=== PATIENT | female | born 1950 | race Hispanic/Latino ===

== ENCOUNTER → 2022-01-06 | Outpatient (CLI) | payer MEDICARE | LOC: US 07:22 | PROVIDERS: ATTEND Urology | DX: N39.0 Urinary tract infection, site not specified (principal) | CPT/HCPCS: 74018; 76770 ==

== ENCOUNTER 2022-12-01 15:21 | Inpatient (IN) | payer MEDICARE ==
[~2022-12-01] VITALS: Ht 149.9 cm; Wt 101.2 kg
[2022-12-01] MEDS ORDERED: POTASSIUM CHLO20 ME1 PO (17:13)
[2022-12-01] MEDS ORDERED: BENZONATATE200 MG PO (17:13)
[2022-12-01] MEDS ORDERED: CARVEDILOL12.5 MG PO (17:13)
[2022-12-01] MEDS ORDERED: TRESIBA FL100 UNIT/1 SQ (17:13)
[2022-12-01] MEDS ORDERED: NEXIUM40 MG PO (17:13)
[2022-12-01] MEDS ORDERED: AMLODIPINE BESY10 MG PO (17:13)
[2022-12-01] MEDS ORDERED: FUROSEMIDE40 MG PO (17:13)
[2022-12-01] MEDS ORDERED: ELIQUIS5 MG PO (17:13)
[2022-12-01] MEDS ORDERED: ATORVASTATIN CA20 MG PO (17:13)
[2022-12-01] MEDS ORDERED: LOSARTAN POTAS100 MG PO (17:13)
[2022-12-01] MEDS ORDERED: BENICAR20 MG PO (17:13)
[2022-12-01] MEDS ORDERED: INSULIN LI100 UNIT/1 SQ (17:17)
[2022-12-01 17:28] VITALS: BP 165/77
[2022-12-01 17:33] VITALS: BP 165/77
[2022-12-01] MEDS ORDERED: DEXTROSE 50% SYRINGE 50 ML IV PRN (18:00)
[2022-12-01] MEDS ORDERED: BENZONATATE 100 MG CAP PO PRN (18:00)
[2022-12-01] MEDS ORDERED: ACETAMINOPHEN 325 MG TAB PO PRN (18:00)
[2022-12-01] MEDS: ALBUTEROL/IPRATROPIUM 3 ML NEB NEB SCH ×2 (19:00→23:00)
[2022-12-01 20:00] VITALS: BP 153/59
[2022-12-01] MEDS: INSULIN DEGLUDEC 30 UNIT SQ SCH (21:00)
[2022-12-01 21:15] VITALS: BP 153/59
[2022-12-01] MEDS: ATORVASTATIN 40 MG TAB PO SCH (21:19)
[2022-12-01] MEDS: INSULIN LISPRO 100 UNIT/1 ML 3ML VIAL SQ SCH (21:21)
[2022-12-02] VITALS (8 sets, daily range): BP systolic 139–182; BP diastolic 54–76
[2022-12-02] MEDS: ALBUTEROL/IPRATROPIUM 3 ML NEB NEB SCH ×6 (03:00→23:00)
[2022-12-02 06:06] LABS: BASOPHILS % 0.4 % (0.0-1.0); HEMATOCRIT 37.6 % (34.2-44.1); LYMPHOCYTES # (AUTO) 0.7 (1.0-3.2); LYMPHOCYTES % 24.6 % (18.0-39.1); MEAN CORPUSCULAR HEMOGLOBIN 29.5 pg (28-32); MEAN CORPUSCULAR HGB CONC 31.9 g/dL (31-35); MEAN CORPUSCULAR VOLUME 92.4 fL (81-99); MONOCYTES # (AUTO) 0.2 (0.2-0.8); NEUTROPHILS # (AUTO) 1.8 (2.1-6.9); NEUTROPHILS % 66.6 % (38.7-80.0); PLATELET COUNT 111 x10e3/uL (140-360); RED BLOOD COUNT 4.07 x10e6/uL (3.6-5.1); RED CELL DISTRIBUTION WIDTH 13.2 % (11.7-14.4)
[2022-12-02 06:34] LABS: ANION GAP 12.5 mmol/L (8-16); CALCIUM 8.6 mg/dL (8.4-10.2); CREATININE, SERUM 0.85 mg/dL (0.57-1.11); POTASSIUM 4.5 mmol/L (3.5-5.1)
[2022-12-02] MEDS: INSULIN LISPRO 100 UNIT/1 ML 3ML VIAL SQ SCH ×7 (08:55→21:03)
[2022-12-02] MEDS: FUROSEMIDE 40 MG TAB PO SCH ×2 (08:59→12:02)
[2022-12-02] MEDS: AMLODIPINE BESYLATE 10 MG TAB PO SCH (08:59)
[2022-12-02] MEDS: POTASSIUM CHLORIDE 20 MEQ TAB CR PO SCH ×2 (08:59→16:28)
[2022-12-02] MEDS: PANTOPRAZOLE SOD 40 MG TABEC PO SCH (09:00)
[2022-12-02] MEDS: CARVEDILOL 12.5 MG TAB PO SCH ×2 (09:00→16:28)
[2022-12-02] MEDS ORDERED: OLMESARTAN 20 MG TAB PO SCH (09:00)
[2022-12-02] MEDS: LOSARTAN POTASSIUM 100 MG TAB PO SCH (09:01)
[2022-12-02] MEDS: APIXABAN 5 MG TABLET PO SCH ×2 (09:01→16:28)
[2022-12-02 11:54] LABS: % IRON SATURATION 6 % (15-50); IRON 20 ug/dL (50-170); TOTAL IRON BINDING CAPACITY 330 ug/dL (261-478); TRANSFERRIN 236 mg/dL (180-382)
[2022-12-02] MEDS: NIRMATRELVIR/RITONAVIR 1 EACH BOX PO SCH (17:58)
[2022-12-02] MEDS: INSULIN DEGLUDEC 30 UNIT SQ SCH (20:57)
[2022-12-02] MEDS: ATORVASTATIN 40 MG TAB PO SCH (20:57)
[2022-12-03] MEDS: ALBUTEROL/IPRATROPIUM 3 ML NEB NEB SCH ×6 (03:00→23:00)
[2022-12-03] MEDS: NIRMATRELVIR/RITONAVIR 1 EACH BOX PO SCH ×2 (05:21→17:13)
[2022-12-03 08:00] VITALS: BP 162/66
[2022-12-03] MEDS: FUROSEMIDE 40 MG TAB PO SCH ×2 (08:35→11:45)
[2022-12-03] MEDS: APIXABAN 5 MG TABLET PO SCH ×2 (08:35→16:50)
[2022-12-03] MEDS: AMLODIPINE BESYLATE 10 MG TAB PO SCH (08:36)
[2022-12-03] MEDS: CARVEDILOL 12.5 MG TAB PO SCH ×2 (08:37→16:50)
[2022-12-03] MEDS: LOSARTAN POTASSIUM 100 MG TAB PO SCH (08:37)
[2022-12-03] MEDS: INSULIN LISPRO 100 UNIT/1 ML 3ML VIAL SQ SCH ×7 (08:39→21:10)
[2022-12-03] MEDS: PANTOPRAZOLE SOD 40 MG TABEC PO SCH (08:41)
[2022-12-03] MEDS: POTASSIUM CHLORIDE 20 MEQ TAB CR PO SCH ×2 (08:41→16:50)
[2022-12-03 11:12] VITALS: BP 169/64
[2022-12-03 15:35] VITALS: BP 132/82
[2022-12-03] MEDS ORDERED: ONDANSETRON HCL INJ 2MG/ML 2ML 2 MG/ML VIAL IV PRN (18:15)
[2022-12-03 20:00] VITALS: BP 132/66
[2022-12-03] MEDS: INSULIN DEGLUDEC 30 UNIT SQ SCH (21:00)
[2022-12-03] MEDS: ATORVASTATIN 40 MG TAB PO SCH (21:07)
[2022-12-04] MEDS: ALBUTEROL/IPRATROPIUM 3 ML NEB NEB SCH ×6 (03:00→23:00)
[2022-12-04 03:55] VITALS: BP 132/71
[2022-12-04] MEDS: NIRMATRELVIR/RITONAVIR 1 EACH BOX PO SCH ×2 (06:00→17:06)
[2022-12-04 08:33] VITALS: BP 132/71
[2022-12-04 09:22] VITALS: BP 160/61
[2022-12-04] MEDS: INSULIN LISPRO 100 UNIT/1 ML 3ML VIAL SQ SCH ×7 (10:57→21:00)
[2022-12-04] MEDS: FUROSEMIDE 40 MG TAB PO SCH ×2 (10:58→12:52)
[2022-12-04] MEDS: POTASSIUM CHLORIDE 20 MEQ TAB CR PO SCH ×2 (10:58→17:04)
[2022-12-04] MEDS: APIXABAN 5 MG TABLET PO SCH ×2 (10:58→17:05)
[2022-12-04] MEDS: AMLODIPINE BESYLATE 10 MG TAB PO SCH (10:59)
[2022-12-04] MEDS: LOSARTAN POTASSIUM 100 MG TAB PO SCH (10:59)
[2022-12-04] MEDS: PANTOPRAZOLE SOD 40 MG TABEC PO SCH (10:59)
[2022-12-04] MEDS: CARVEDILOL 12.5 MG TAB PO SCH ×2 (11:00→17:06)
[2022-12-04 12:45] VITALS: BP 165/67
[2022-12-04 17:29] VITALS: BP 123/51
[2022-12-04 20:00] VITALS: BP 134/58
[2022-12-04] MEDS ORDERED: AZITHROMYCIN 250 MG TAB PO SCH (20:00)
[2022-12-04] MEDS: INSULIN DEGLUDEC 30 UNIT SQ SCH (21:00)
[2022-12-04] MEDS: ATORVASTATIN 40 MG TAB PO SCH (21:03)
[2022-12-05 01:52] VITALS: BP 109/94
[2022-12-05] MEDS: ALBUTEROL/IPRATROPIUM 3 ML NEB NEB SCH (03:00)
[2022-12-05 05:07] VITALS: BP 146/60
[2022-12-05 06:05] LABS: BASOPHILS % 0.8 % (0.0-1.0); EOSINOPHILS # (AUTO) 0.4 (0.0-0.4); EOSINOPHILS % 7.9 % (0.0-6.0); HEMATOCRIT 35.9 % (34.2-44.1); HEMOGLOBIN 11.9 g/dL (12.0-16.0); LYMPHOCYTES # (AUTO) 1.7 (1.0-3.2); LYMPHOCYTES % 32.6 % (18.0-39.1); MEAN CORPUSCULAR HEMOGLOBIN 30.5 pg (28-32); MEAN CORPUSCULAR HGB CONC 33.1 g/dL (31-35); MEAN CORPUSCULAR VOLUME 92.1 fL (81-99); MONOCYTES # (AUTO) 0.6 (0.2-0.8); MONOCYTES % 11.9 % (4.4-11.3); NEUTROPHILS # (AUTO) 2.4 (2.1-6.9); NEUTROPHILS % 46.6 % (38.7-80.0); PLATELET COUNT 139 x10e3/uL (140-360); RED CELL DISTRIBUTION WIDTH 13.2 % (11.7-14.4)
[2022-12-05] MEDS: NIRMATRELVIR/RITONAVIR 1 EACH BOX PO SCH (06:19)
[2022-12-05 06:28] LABS: ANION GAP 14.7 mmol/L (8-16); CALCIUM 8.8 mg/dL (8.4-10.2); CREATININE, SERUM 0.92 mg/dL (0.57-1.11); POTASSIUM 4.7 mmol/L (3.5-5.1)
[2022-12-05] MEDS ORDERED: ONDANSETRON HCL 4 MG ORAL DISINTEGRATING TAB SL PRN (07:30)
[2022-12-05] MEDS: LOSARTAN POTASSIUM 100 MG TAB PO SCH (09:09)
[2022-12-05] MEDS: APIXABAN 5 MG TABLET PO SCH (09:09)
[2022-12-05] MEDS: AMLODIPINE BESYLATE 10 MG TAB PO SCH (09:09)
[2022-12-05] MEDS: CARVEDILOL 12.5 MG TAB PO SCH (09:10)
[2022-12-05] MEDS: PANTOPRAZOLE SOD 40 MG TABEC PO SCH (09:10)
[2022-12-05] MEDS: POTASSIUM CHLORIDE 20 MEQ TAB CR PO SCH (09:10)
[2022-12-05] MEDS: FUROSEMIDE 40 MG TAB PO SCH (09:10)
[2022-12-05] MEDS: INSULIN LISPRO 100 UNIT/1 ML 3ML VIAL SQ SCH ×2 (09:12→09:13)
[2022-12-05 10:12] VITALS: BP 149/66
== END 2022-12-05 10:48 | disposition home or self-care (01) | DRG 177 ==
LOC: EDSTATUS 15:36
PROVIDERS: ADMIT Internal Medicine; ATTEND Internal Medicine
DX: U07.1 COVID-19 (principal); J12.82 Pneumonia due to coronavirus disease 2019; Z68.42 Body mass index [BMI] 45.0-49.9, adult; E66.01 Morbid (severe) obesity due to excess calories; K21.9 Gastro-esophageal reflux disease without esophagitis; M19.90 Unspecified osteoarthritis, unspecified site; I10 Essential (primary) hypertension; I25.10 Atherosclerotic heart disease of native coronary artery without angina pectoris; G47.30 Sleep apnea, unspecified; D64.9 Anemia, unspecified; E78.5 Hyperlipidemia, unspecified; R06.03 Acute respiratory distress; E11.40 Type 2 diabetes mellitus with diabetic neuropathy, unspecified; Z95.1 Presence of aortocoronary bypass graft; Z28.310 Unvaccinated for COVID-19; Z79.4 Long term (current) use of insulin; Z86.16 Personal history of COVID-19
CPT/HCPCS: 36415; 71046; 80048; 82948; 83540; 84466; 85025; J0456; J0696; J7050

== ENCOUNTER 2022-12-24 15:52 | Observation (INO) | payer MEDICARE ==
[~2022-12-24] VITALS: Ht 152.4 cm; Wt 103.9 kg
[~2022-12-24 15:52] MED LIST: AMLODIPINE BESY10 MG PO; ATORVASTATIN CA20 MG PO; BENICAR20 MG PO; BENZONATATE200 MG PO; CARVEDILOL12.5 MG PO; ELIQUIS5 MG PO; FUROSEMIDE40 MG PO; INSULIN LI100 UNIT/1 SQ; LOSARTAN POTAS100 MG PO; NEXIUM40 MG PO; POTASSIUM CHLO20 ME1 PO; TRESIBA FL100 UNIT/1 SQ
[2022-12-24 16:15] LABS: BASOPHILS # (AUTO) 0.1 (0.0-0.1); BASOPHILS % 0.8 % (0.0-1.0); EOSINOPHILS # (AUTO) 0.6 (0.0-0.4); EOSINOPHILS % 7.4 % (0.0-6.0); HEMATOCRIT 35.9 % (34.2-44.1); HEMOGLOBIN 11.4 g/dL (12.0-16.0); LYMPHOCYTES # (AUTO) 2.1 (1.0-3.2); LYMPHOCYTES % 25.7 % (18.0-39.1); MEAN CORPUSCULAR HEMOGLOBIN 29.9 pg (28-32); MEAN CORPUSCULAR HGB CONC 31.8 g/dL (31-35); MEAN CORPUSCULAR VOLUME 94.2 fL (81-99); MONOCYTES # (AUTO) 0.9 (0.2-0.8); MONOCYTES % 11.3 % (4.4-11.3); NEUTROPHILS # (AUTO) 4.6 (2.1-6.9); NEUTROPHILS % 54.7 % (38.7-80.0); PLATELET COUNT 144 x10e3/uL (140-360); RED BLOOD COUNT 3.81 x10e6/uL (3.6-5.1); RED CELL DISTRIBUTION WIDTH 14.2 % (11.7-14.4)
[2022-12-24 16:28] LABS: INR 1.11; PROTHROMBIN TIME 14.5 seconds (11.9-14.5)
[2022-12-24 16:29] LABS: PARTIAL THROMBOPLASTIN TIME 38.3 seconds (23.8-35.5)
[2022-12-24] MEDS ORDERED: INSULIN LI100 UNIT/1 SQ (16:31)
[2022-12-24 16:39] LABS: ALANINE AMINOTRANSFERASE 17 IU/L (0-55); ALBUMIN 3.1 g/dL (3.5-5.0); ALBUMIN/GLOBULIN RATIO 0.6 (0.8-2.0); ALKALINE PHOSPHATASE 168 IU/L (40-150); ANION GAP 13.2 mmol/L (8-16); BLOOD UREA NITROGEN 24 mg/dL (7-26); BUN/CREATININE RATIO 27 (6-25); CALCIUM 9.1 mg/dL (8.4-10.2); CARBON DIOXIDE 26 mmol/L (22-29); CHLORIDE 107 mmol/L (98-107); CREATINE KINASE 53 IU/L (29-168); GLUCOSE 114 mg/dL (74-118); MAGNESIUM 2.1 MG/DL (1.3-2.1); POTASSIUM 4.2 mmol/L (3.5-5.1); SODIUM 142 mmol/L (136-145)
[2022-12-24 16:59] LABS: CLARITY,URINE CLEAR (CLEAR); COLOR,URINE YELLOW (YELLOW)
[2022-12-24 17:00] LABS: KETONES,URINE NEGATIVE (NEGATIVE); LEUKOCYTE ESTERASE ,URINE SMALL (NEGATIVE); NITRITE,URINE NEGATIVE (NEGATIVE); PROTEIN,URINE DIPSTICK 2+ (NEGATIVE); URINE UROBILINOGEN 0.2 mg/dL (0.2 - 1)
[2022-12-24 17:04] LABS: BACTERIA,URINE RARE /HPF; EPITHELIAL CELLS,URINE MANY /LPF; RBC,URINE 0-5 /HPF (0-5)
[2022-12-24 17:05] LABS: YEAST,URINE MODERATE
[2022-12-24] MEDS ORDERED: SODIUM CHLORIDE 0.9% 100 ML ONE (17:52)
[2022-12-24] MEDS ORDERED: IOPAMIDOL 370 MG/ML 100 ML INFUS..BTL INJ ONE (17:53)
[2022-12-24] MEDS ORDERED: Morphine 2mg Syringe 2 MG/ML SYR IV PRN (18:45)
[2022-12-24] MEDS ORDERED: ONDANSETRON HCL INJ 2MG/ML 2ML 2 MG/ML VIAL IV PRN (18:45)
[2022-12-24] MEDS: ACETAMINOPHEN 325 MG TAB PO PRN (19:00)
[2022-12-24] MEDS: FAMOTIDINE 20 MG/2 ML VIAL IV SCH (19:00)
[2022-12-24] MEDS ORDERED: ACETAMINOPHEN 325 MG TAB ONE (19:18)
[2022-12-24] MEDS ORDERED: FAMOTIDINE 20 MG/2 ML VIAL IV ONE (19:18)
[2022-12-24 21:57] VITALS: BP 177/62
[2022-12-24 22:50] VITALS: BP 177/62
[2022-12-24] MEDS ORDERED: HUMALOG MI100 UNIT/2 SQ (23:14)
[2022-12-25 00:16] VITALS: BP 157/56
[2022-12-25 02:29] LABS: CREATINE KINASE MB 0.8 ng/mL (0-5.0)
[2022-12-25] MEDS: FAMOTIDINE 20 MG/2 ML VIAL IV SCH (03:44)
[2022-12-25 04:58] VITALS: BP 166/71
[2022-12-25 05:55] LABS: BASOPHILS % 0.3 % (0.0-1.0); EOSINOPHILS # (AUTO) 0.5 (0.0-0.4); EOSINOPHILS % 6.4 % (0.0-6.0); HEMATOCRIT 35.2 % (34.2-44.1); HEMOGLOBIN 11.2 g/dL (12.0-16.0); LYMPHOCYTES # (AUTO) 0.9 (1.0-3.2); LYMPHOCYTES % 12.2 % (18.0-39.1); MEAN CORPUSCULAR HEMOGLOBIN 29.8 pg (28-32); MEAN CORPUSCULAR HGB CONC 31.8 g/dL (31-35); MEAN CORPUSCULAR VOLUME 93.6 fL (81-99); MONOCYTES # (AUTO) 0.6 (0.2-0.8); NEUTROPHILS # (AUTO) 5.3 (2.1-6.9); PLATELET COUNT 132 x10e3/uL (140-360); RED BLOOD COUNT 3.76 x10e6/uL (3.6-5.1); RED CELL DISTRIBUTION WIDTH 14.3 % (11.7-14.4)
[2022-12-25] MEDS: ACETAMINOPHEN 325 MG TAB PO PRN (05:57)
[2022-12-25 06:43] LABS: ALBUMIN 2.9 g/dL (3.5-5.0); ALBUMIN/GLOBULIN RATIO 0.6 (0.8-2.0); ANION GAP 10.9 mmol/L (8-16); CHOL/HDL RATIO 2.4 (3.0-3.6); CREATININE, SERUM 0.85 mg/dL (0.57-1.11); POTASSIUM 3.9 mmol/L (3.5-5.1)
[2022-12-25 07:16] LABS: CREATINE KINASE MB 0.8 ng/mL (0-5.0)
[2022-12-25 07:41] VITALS: BP 169/73
[2022-12-25 09:00] VITALS: BP 169/73
== END 2022-12-25 10:14 | disposition home or self-care (01) ==
LOC: ER 16:01 → ERHOLD 18:43 → MED/SURG3 21:44
PROVIDERS: ADMIT Internal Medicine; ATTEND Internal Medicine
DX: R07.9 Chest pain, unspecified (principal); R06.02 Shortness of breath; Z20.822 Contact with and (suspected) exposure to COVID-19; R42 Dizziness and giddiness; I25.10 Atherosclerotic heart disease of native coronary artery without angina pectoris; Z95.1 Presence of aortocoronary bypass graft; E78.5 Hyperlipidemia, unspecified; I10 Essential (primary) hypertension; J45.909 Unspecified asthma, uncomplicated; F41.9 Anxiety disorder, unspecified
CPT/HCPCS: 0223U; 36415 ×2; 70450; 70496; 70498; 71045; 80053 ×2; 80061; 81001; 82550 ×2; 82553 ×2; 82948 ×2; 83735; 83880; 84484 ×2; 85025 ×2; 85610; 85730; 87086; 87186; 93005; 99285; G0378 ×2; J0696; J7050; Q9967

== ENCOUNTER 2023-04-17 07:11 | Emergency (ER) | payer MEDICARE ==
[~2023-04-17] VITALS: Ht 147.3 cm; Wt 106.1 kg
[~2023-04-17 07:11] MED LIST changes: +HUMALOG MI100 UNIT/2 SQ
[2023-04-17 07:18] VITALS: O2SAT 98
[2023-04-17 08:01] LABS: CLARITY,URINE SL CLOUDY (CLEAR); COLOR,URINE YELLOW (YELLOW); KETONES,URINE NEGATIVE (NEGATIVE); LEUKOCYTE ESTERASE ,URINE TRACE (NEGATIVE); NITRITE,URINE NEGATIVE (NEGATIVE); PROTEIN,URINE DIPSTICK >=300 (NEGATIVE); URINE UROBILINOGEN 0.2 mg/dL (0.2 - 1)
[2023-04-17 08:04] LABS: BACTERIA,URINE MANY /HPF; EPITHELIAL CELLS,URINE MANY /LPF; RBC,URINE 0-5 /HPF (0-5); WBC,URINE (MAN) 0-5 /HPF (0-5)
[2023-04-17] MEDS ORDERED: CEFUROXIME250 MG PO (08:13)
== END 2023-04-17 08:38 | disposition home or self-care (01) ==
LOC: ER 07:15
DX: R82.71 Bacteriuria (principal); I10 Essential (primary) hypertension; E11.9 Type 2 diabetes mellitus without complications; E78.5 Hyperlipidemia, unspecified; F41.9 Anxiety disorder, unspecified; J45.909 Unspecified asthma, uncomplicated; I25.10 Atherosclerotic heart disease of native coronary artery without angina pectoris; Z86.73 Personal history of transient ischemic attack (TIA), and cerebral infarction without residual deficits
CPT/HCPCS: 81001; 87086; 99284

== ENCOUNTER 2023-04-23 05:18 | Emergency (ER) | payer MEDICARE ==
[~2023-04-23] VITALS: Ht 147.3 cm; Wt 106.1 kg
[~2023-04-23 05:18] MED LIST changes: +CEFUROXIME250 MG PO
[2023-04-23] MEDS ORDERED: ONDANSETRON HCL INJ 2MG/ML 2ML 2 MG/ML VIAL IV STA (05:49)
[2023-04-23 06:02] LABS: BASOPHILS # (AUTO) 0.1 (0.0-0.1); BASOPHILS % 1.3 % (0.0-1.0); EOSINOPHILS # (AUTO) 0.6 (0.0-0.4); EOSINOPHILS % 8.9 % (0.0-6.0); HEMATOCRIT 37.2 % (34.2-44.1); HEMOGLOBIN 12.1 g/dL (12.0-16.0); LYMPHOCYTES # (AUTO) 1.9 (1.0-3.2); LYMPHOCYTES % 26.5 % (18.0-39.1); MEAN CORPUSCULAR HEMOGLOBIN 30.3 pg (28-32); MEAN CORPUSCULAR HGB CONC 32.5 g/dL (31-35); MEAN CORPUSCULAR VOLUME 93.2 fL (81-99); MONOCYTES # (AUTO) 0.7 (0.2-0.8); MONOCYTES % 9.6 % (4.4-11.3); NEUTROPHILS # (AUTO) 3.8 (2.1-6.9); NEUTROPHILS % 53.4 % (38.7-80.0); PLATELET COUNT 145 x10e3/uL (140-360); RED BLOOD COUNT 3.99 x10e6/uL (3.6-5.1)
[2023-04-23 06:11] LABS: CLARITY,URINE CLEAR (CLEAR); COLOR,URINE YELLOW (YELLOW); KETONES,URINE NEGATIVE (NEGATIVE); LEUKOCYTE ESTERASE ,URINE NEGATIVE (NEGATIVE); NITRITE,URINE NEGATIVE (NEGATIVE); PROTEIN,URINE DIPSTICK 2+ (NEGATIVE); URINE UROBILINOGEN 0.2 mg/dL (0.2 - 1)
[2023-04-23 06:28] LABS: ALBUMIN 3.3 g/dL (3.5-5.0); ALBUMIN/GLOBULIN RATIO 0.7 (0.8-2.0); ANION GAP 15.7 mmol/L (8-16); CREATININE, SERUM 0.95 mg/dL (0.57-1.11); POTASSIUM 4.7 mmol/L (3.5-5.1)
[2023-04-23 06:29] LABS: BACTERIA,URINE MODERATE /HPF; EPITHELIAL CELLS,URINE MODERATE /LPF; RBC,URINE 0-5 /HPF (0-5); WBC,URINE (MAN) 0-5 /HPF (0-5)
[2023-04-23] MEDS ORDERED: IOPAMIDOL 370 MG/ML 100 ML INFUS..BTL INJ ONE (06:35)
[2023-04-23] MEDS ORDERED: OMEPRAZOLE40 MG PO (07:36)
[2023-04-23] MEDS ORDERED: DIFLUCAN100 MG PO (07:38)
[2023-04-23 07:50] VITALS: O2SAT 97
== END 2023-04-23 07:55 | disposition home or self-care (01) ==
LOC: ER 06:45
DX: R10.30 Lower abdominal pain, unspecified (principal); Z95.1 Presence of aortocoronary bypass graft; Z86.73 Personal history of transient ischemic attack (TIA), and cerebral infarction without residual deficits; Z87.440 Personal history of urinary (tract) infections; E78.5 Hyperlipidemia, unspecified; M19.90 Unspecified osteoarthritis, unspecified site; F41.9 Anxiety disorder, unspecified; I25.10 Atherosclerotic heart disease of native coronary artery without angina pectoris; I10 Essential (primary) hypertension; E11.9 Type 2 diabetes mellitus without complications; Z79.4 Long term (current) use of insulin; Z79.899 Other long term (current) drug therapy; Z79.01 Long term (current) use of anticoagulants
CPT/HCPCS: 36415; 74177; 80053; 81001; 83690; 85025; 99284; J2405; Q9967

== ENCOUNTER 2024-06-10 13:49 | Emergency (ER) | payer MEDICARE ==
[~2024-06-10] VITALS: Ht 149.9 cm; Wt 101.2 kg
[~2024-06-10 13:49] MED LIST changes: +CEFDINIR300 MG PO; +DIFLUCAN100 MG PO; +OMEPRAZOLE40 MG PO
[2024-06-10 14:50] VITALS: TEMP 98.7
[2024-06-10 15:17] VITALS: PULSE 76; RESP 18
[2024-06-10 15:34] LABS: BASOPHILS # (AUTO) 0.1 (0.0-0.1); BASOPHILS % 0.6 % (0.0-1.0); EOSINOPHILS # (AUTO) 0.4 (0.0-0.4); EOSINOPHILS % 3.5 % (0.0-6.0); HEMATOCRIT 36.7 % (34.2-44.1); HEMOGLOBIN 11.9 g/dL (12.0-16.0); LYMPHOCYTES # (AUTO) 2.2 (1.0-3.2); LYMPHOCYTES % 21.6 % (18.0-39.1); MEAN CORPUSCULAR HEMOGLOBIN 31.5 pg (28-32); MEAN CORPUSCULAR HGB CONC 32.4 g/dL (31-35); MEAN CORPUSCULAR VOLUME 97.1 fL (81-99); MONOCYTES # (AUTO) 0.8 (0.2-0.8); MONOCYTES % 7.8 % (4.4-11.3); NEUTROPHILS # (AUTO) 6.6 (2.1-6.9); NEUTROPHILS % 66.3 % (38.7-80.0); PLATELET COUNT 150 x10e3/uL (140-360); RED BLOOD COUNT 3.78 x10e6/uL (3.6-5.1); RED CELL DISTRIBUTION WIDTH 13.2 % (11.7-14.4); WHITE BLOOD COUNT 9.96 x10e3/uL (4.8-10.8)
[2024-06-10 15:45] LABS: INR 1.24; PROTHROMBIN TIME 16.2 seconds (11.9-14.5)
[2024-06-10 15:46] LABS: PARTIAL THROMBOPLASTIN TIME 33.4 seconds (23.8-35.5)
[2024-06-10 15:47] LABS: BILIRUBIN,URINE NEGATIVE (NEGATIVE); CLARITY,URINE SL CLOUDY (CLEAR); COLOR,URINE ORANGE (YELLOW); GLUCOSE, URINE NEGATIVE (NEGATIVE); KETONES,URINE NEGATIVE (NEGATIVE); LEUKOCYTE ESTERASE ,URINE SMALL (NEGATIVE); NITRITE,URINE NEGATIVE (NEGATIVE); PH,URINE 5.5 (5 - 7); PROTEIN,URINE DIPSTICK 2+ (NEGATIVE); URINE UROBILINOGEN 0.2 mg/dL (0.2 - 1)
[2024-06-10 15:58] LABS: BACTERIA,URINE MODERATE /HPF; EPITHELIAL CELLS,URINE MODERATE /LPF; RBC,URINE 21-50 /HPF (0-5); TRANSITIONAL EPI CELLS,URINE FEW
[2024-06-10 16:29] LABS: ANION GAP 14.4 mmol/L (8-16); CALCIUM 9.2 mg/dL (8.4-10.2); CREATININE, SERUM 1.21 mg/dL (0.57-1.11); POTASSIUM 4.4 mmol/L (3.5-5.1)
[2024-06-10] MEDS ORDERED: MACROBID 100 M100 MG PO (16:55)
[2024-06-10 17:06] VITALS: BP 172/84; PULSE 76; RESP 18; O2SAT 98
== END 2024-06-10 17:07 | disposition home or self-care (01) ==
LOC: ER 15:00
DX: N93.9 Abnormal uterine and vaginal bleeding, unspecified (principal); N39.0 Urinary tract infection, site not specified; R10.30 Lower abdominal pain, unspecified; E11.65 Type 2 diabetes mellitus with hyperglycemia; I10 Essential (primary) hypertension; E78.5 Hyperlipidemia, unspecified; I25.10 Atherosclerotic heart disease of native coronary artery without angina pectoris; F41.9 Anxiety disorder, unspecified; Z95.1 Presence of aortocoronary bypass graft
CPT/HCPCS: 36415; 74176; 76856; 80048; 81001; 85025; 85610; 85730; 99284

== ENCOUNTER 2024-06-16 23:59 | Observation (INO) | payer MEDICARE ==
[~2024-06-16] VITALS: Ht 149.9 cm; Wt 101.2 kg
[~2024-06-16 23:59] MED LIST changes: +MACROBID 100 M100 MG PO
[2024-06-17] VITALS (11 sets, daily range): BP systolic 127–153; BP diastolic 60–78; PULSE 74–88; RESP 16–20; TEMP 98.1–98.7; O2SAT 94–100
[2024-06-17 00:38] LABS: BASOPHILS # (AUTO) 0.1 (0.0-0.1); BASOPHILS % 0.8 % (0.0-1.0); EOSINOPHILS # (AUTO) 0.3 (0.0-0.4); EOSINOPHILS % 2.4 % (0.0-6.0); HEMATOCRIT 36.7 % (34.2-44.1); HEMOGLOBIN 11.5 g/dL (12.0-16.0); LYMPHOCYTES # (AUTO) 1.7 (1.0-3.2); LYMPHOCYTES % 16.7 % (18.0-39.1); MEAN CORPUSCULAR HEMOGLOBIN 31.1 pg (28-32); MEAN CORPUSCULAR HGB CONC 31.3 g/dL (31-35); MEAN CORPUSCULAR VOLUME 99.2 fL (81-99); MONOCYTES # (AUTO) 0.9 (0.2-0.8); MONOCYTES % 8.2 % (4.4-11.3); NEUTROPHILS # (AUTO) 7.4 (2.1-6.9); NEUTROPHILS % 71.7 % (38.7-80.0); PLATELET COUNT 152 x10e3/uL (140-360); RED CELL DISTRIBUTION WIDTH 13.2 % (11.7-14.4); WHITE BLOOD COUNT 10.31 x10e3/uL (4.8-10.8)
[2024-06-17 00:53] LABS: ALANINE AMINOTRANSFERASE 29 IU/L (0-55); ALBUMIN 3.3 g/dL (3.5-5.0); ALBUMIN/GLOBULIN RATIO 0.8 (0.8-2.0); ALKALINE PHOSPHATASE 187 IU/L (40-150); ANION GAP 13.5 mmol/L (8-16); BILIRUBIN,TOTAL 0.3 mg/dL (0.2-1.2); BLOOD UREA NITROGEN 36 mg/dL (7-26); BUN/CREATININE RATIO 22 (6-25); CALCIUM 9.7 mg/dL (8.4-10.2); CARBON DIOXIDE 28 mmol/L (22-29); CHLORIDE 99 mmol/L (98-107); CREATINE KINASE 38 IU/L (29-168); CREATININE, SERUM 1.67 mg/dL (0.57-1.11); EST GLOMERULAR FILTRATION RATE 32 ML/MIN (>=60); GLUCOSE 292 mg/dL (74-118); SODIUM 135 mmol/L (136-145); TOTAL PROTEIN 7.7 g/dL (6.5-8.1)
[2024-06-17 00:58] LABS: INR 0.98; PROTHROMBIN TIME 13.5 seconds (11.9-14.5)
[2024-06-17 00:59] LABS: PARTIAL THROMBOPLASTIN TIME 29.6 seconds (23.8-35.5); POTASSIUM 5.5 mmol/L (3.5-5.1)
[2024-06-17 01:20] LABS: TROPONIN I < 0.05 ng/mL (0.0-0.40)
[2024-06-17 02:09] LABS: CLARITY,URINE CLEAR (CLEAR); COLOR,URINE YELLOW (YELLOW); GLUCOSE, URINE NEGATIVE (NEGATIVE); KETONES,URINE NEGATIVE (NEGATIVE); LEUKOCYTE ESTERASE ,URINE TRACE (NEGATIVE); NITRITE,URINE NEGATIVE (NEGATIVE); PH,URINE 5.5 (5 - 7); PROTEIN,URINE DIPSTICK 1+ (NEGATIVE); URINE UROBILINOGEN 0.2 mg/dL (0.2 - 1)
[2024-06-17 02:10] LABS: BACTERIA,URINE MANY /HPF; BILIRUBIN,URINE NEGATIVE (NEGATIVE); EPITHELIAL CELLS,URINE MANY /LPF; RBC,URINE 0-5 /HPF (0-5); RENAL EPITHELIAL CELLS,URINE FEW
[2024-06-17] MEDS ORDERED: DEXTROSE 50% SYRINGE 50 ML IV PRN (02:15)
[2024-06-17] MEDS ORDERED: ACETAMINOPHEN 325 MG TAB ONE (03:08)
[2024-06-17] MEDS: ACETAMINOPHEN 325 MG TAB PO ONE (03:12)
[2024-06-17] MEDS: ONDANSETRON HCL INJ 2MG/ML 2ML 2 MG/ML VIAL IV PRN (07:51)
[2024-06-17] MEDS: INSULIN REGULAR, HUMAN 100 UNIT/1 ML SQ SCH (07:53)
[2024-06-17 09:26] LABS: TROPONIN I 0.034 ng/mL (0-0.300)
[2024-06-17 17:29] LABS: TROPONIN I 0.013 ng/mL (0-0.300)
[2024-06-18] VITALS: BP 144/64; PULSE 71; RESP 18; TEMP 98; O2SAT 100
[2024-06-18 04:00] VITALS: BP 149/73; PULSE 76; RESP 18; TEMP 98.7; O2SAT 100
[2024-06-18 05:21] LABS: BASOPHILS # (AUTO) 0.1 (0.0-0.1); BASOPHILS % 0.7 % (0.0-1.0); EOSINOPHILS # (AUTO) 0.2 (0.0-0.4); EOSINOPHILS % 2.7 % (0.0-6.0); HEMATOCRIT 35.3 % (34.2-44.1); HEMOGLOBIN 10.9 g/dL (12.0-16.0); LYMPHOCYTES # (AUTO) 1.5 (1.0-3.2); LYMPHOCYTES % 19.6 % (18.0-39.1); MEAN CORPUSCULAR HEMOGLOBIN 30.8 pg (28-32); MEAN CORPUSCULAR HGB CONC 30.9 g/dL (31-35); MEAN CORPUSCULAR VOLUME 99.7 fL (81-99); MONOCYTES # (AUTO) 0.7 (0.2-0.8); MONOCYTES % 9.3 % (4.4-11.3); NEUTROPHILS % 67.4 % (38.7-80.0); PLATELET COUNT 147 x10e3/uL (140-360); RED BLOOD COUNT 3.54 x10e6/uL (3.6-5.1); RED CELL DISTRIBUTION WIDTH 13.1 % (11.7-14.4); WHITE BLOOD COUNT 7.38 x10e3/uL (4.8-10.8)
[2024-06-18 06:07] LABS: ANION GAP 7.5 mmol/L (8-16); CALCIUM 9.5 mg/dL (8.4-10.2); CHOL/HDL RATIO 2.4 (3.0-3.6); CREATININE, SERUM 1.02 mg/dL (0.57-1.11); POTASSIUM 4.5 mmol/L (3.5-5.1)
[2024-06-18 06:50] LABS: TROPONIN I 0.015 ng/mL (0-0.300)
[2024-06-18 08:17] VITALS: BP 156/74; PULSE 79; RESP 18; TEMP 98.5; O2SAT 98
[2024-06-18 08:45] VITALS: BP 156/74; PULSE 79; RESP 18; TEMP 98.5; O2SAT 98
[2024-06-18] MEDS: ACETAMINOPHEN 325 MG TAB PO PRN (10:04)
[2024-06-18] MEDS ORDERED: ONDANSETRON HCL 4 MG ORAL DISINTEGRATING TAB PO PRN (11:15)
[2024-07-01] MEDS ORDERED: OZEMPIC0.25 MG/02 (10:43)
[2024-07-01] MEDS ORDERED: ELIQUIS2.5 MG PO (10:45)
== END 2024-06-18 11:46 | disposition home or self-care (01) ==
LOC: ER 06-17 00:03 → ERHOLD 06-17 02:06 → MED/SURG3 06-17 09:40
PROVIDERS: ADMIT Internal Medicine; ATTEND Internal Medicine
DX: R07.89 Other chest pain (principal); N93.9 Abnormal uterine and vaginal bleeding, unspecified; D64.9 Anemia, unspecified; I13.0 Hypertensive heart and chronic kidney disease with heart failure and stage 1 through stage 4 chronic kidney disease, or unspecified chronic kidney disease; E11.22 Type 2 diabetes mellitus with diabetic chronic kidney disease; N18.30 Chronic kidney disease, stage 3 unspecified; I50.9 Heart failure, unspecified; N17.9 Acute kidney failure, unspecified; Z79.4 Long term (current) use of insulin; I25.10 Atherosclerotic heart disease of native coronary artery without angina pectoris; Z95.1 Presence of aortocoronary bypass graft
CPT/HCPCS: 36415 ×2; 70450; 71045; 76830; 80048; 80053; 80061; 81001; 82550 ×2; 82948 ×2; 83880; 84484 ×2; 85025 ×2; 85610; 85730; 93306; 94799; 96372; 99284; G0378 ×2; J2405

== ENCOUNTER → 2024-07-17 | Day surgery (SDC) | payer MEDICARE ==
[~2024-07-17] MED LIST changes: +ALBUTEROL 90 MCG/ACT INHALER INH ONE; +CARAFATE1 GM/10 ML PO; +DEXAMETHASONE SOD PHOS INJ 4 MG/ML SDV ONE; +ELIQUIS2.5 MG PO; +FENTANYL CITRATE/PF 100MCG/2 ML INJ ONE; +HUMALOG SQ; +HYDRALAZINE HCL 20 MG/ML VIAL ONE; +LIDOCAINE HCL 2% LOCAL INJ 5 ML SDV VIAL INJ ONE; +ONDANSETRON HCL INJ 2MG/ML 2ML 2 MG/ML VIAL ONE; +OZEMPIC0.25 MG/02; +PROPOFOL IV EMULSION 10 MG/ML 20 ML VIAL ONE; +ROCURONIUM BROMIDE 10 MG/ML 5ML VIAL IV ONE; +SEVOFLURANE INHAL SOLN 250 ML PEN BTL ONE; +SUCCINYLCHOLINE CHLORIDE 20 MG/ML 10ML VIAL ONE; +VENTOLIN HFA18 GM INH
[2024-07-17] MEDS: LACTATED RINGER'S 1,000 ML ONE (06:14)
[2024-07-17 06:56] LABS: BASOPHILS % 0.5 % (0.0-1.0); EOSINOPHILS # (AUTO) 0.2 (0.0-0.4); EOSINOPHILS % 2.7 % (0.0-6.0); HEMATOCRIT 36.6 % (34.2-44.1); HEMOGLOBIN 11.5 g/dL (12.0-16.0); LYMPHOCYTES # (AUTO) 1.7 (1.0-3.2); LYMPHOCYTES % 19.8 % (18.0-39.1); MEAN CORPUSCULAR HEMOGLOBIN 31.4 pg (28-32); MEAN CORPUSCULAR HGB CONC 31.4 g/dL (31-35); MONOCYTES # (AUTO) 0.7 (0.2-0.8); MONOCYTES % 8.2 % (4.4-11.3); NEUTROPHILS # (AUTO) 5.8 (2.1-6.9); NEUTROPHILS % 68.3 % (38.7-80.0); PLATELET COUNT 156 x10e3/uL (140-360); RED BLOOD COUNT 3.66 x10e6/uL (3.6-5.1); RED CELL DISTRIBUTION WIDTH 13.2 % (11.7-14.4); WHITE BLOOD COUNT 8.49 x10e3/uL (4.8-10.8)
[2024-07-17 07:12] LABS: ANION GAP 12.7 mmol/L (8-16); CALCIUM 9.3 mg/dL (8.4-10.2); CREATININE, SERUM 1.34 mg/dL (0.57-1.11); POTASSIUM 4.7 mmol/L (3.5-5.1)
[2024-07-17] MEDS: HYDROMORPHONE 1MG/1ML INJ ONE (08:57)
[2024-07-17] MEDS: ONDANSETRON HCL INJ 2MG/ML 2ML 2 MG/ML VIAL ONE (08:58)
[2024-07-17] MEDS: ACETAMINOPHEN 1000 MG/100 ML 100 ML IV ONE (09:17)
[2024-07-17 10:37] VITALS: BP 136/75; PULSE 65; RESP 16; O2SAT 96
== END | disposition home or self-care (01) ==
LOC: OR 05:12
PROVIDERS: ATTEND Obstetrics & Gynecology
DX: N95.0 Postmenopausal bleeding (principal); D64.9 Anemia, unspecified; I48.91 Unspecified atrial fibrillation; I25.10 Atherosclerotic heart disease of native coronary artery without angina pectoris; I13.0 Hypertensive heart and chronic kidney disease with heart failure and stage 1 through stage 4 chronic kidney disease, or unspecified chronic kidney disease; N18.9 Chronic kidney disease, unspecified; I50.9 Heart failure, unspecified; E78.00 Pure hypercholesterolemia, unspecified; I69.354 Hemiplegia and hemiparesis following cerebral infarction affecting left non-dominant side; J44.9 Chronic obstructive pulmonary disease, unspecified; E66.01 Morbid (severe) obesity due to excess calories; F41.9 Anxiety disorder, unspecified; Z88.6 Allergy status to analgesic agent; Z88.2 Allergy status to sulfonamides; Z88.1 Allergy status to other antibiotic agents; Z01.810 Encounter for preprocedural cardiovascular examination; Z79.02 Long term (current) use of antithrombotics/antiplatelets; Z79.4 Long term (current) use of insulin; Z79.85 Long-term (current) use of injectable non-insulin antidiabetic drugs; Z79.899 Other long term (current) drug therapy; Z68.41 Body mass index [BMI] 40.0-44.9, adult; Z87.01 Personal history of pneumonia (recurrent); Z87.19 Personal history of other diseases of the digestive system; Z95.5 Presence of coronary angioplasty implant and graft; Z98.890 Other specified postprocedural states
CPT/HCPCS: 36415; 58558; 71046; 80048; 85025; 88305; 93005; J0131; J0330; J0360; J1100; J1170; J2001; J2405; J2704; J3010; J7121

== ENCOUNTER 2024-08-30 09:30 | Emergency (ER) | payer MEDICARE ==
[~2024-08-30] VITALS: Ht 149.9 cm; Wt 100.7 kg
[~2024-08-30 09:30] MED LIST changes: -ALBUTEROL 90 MCG/ACT INHALER INH ONE; -DEXAMETHASONE SOD PHOS INJ 4 MG/ML SDV ONE; -FENTANYL CITRATE/PF 100MCG/2 ML INJ ONE; -HYDRALAZINE HCL 20 MG/ML VIAL ONE; -LIDOCAINE HCL 2% LOCAL INJ 5 ML SDV VIAL INJ ONE; -ONDANSETRON HCL INJ 2MG/ML 2ML 2 MG/ML VIAL ONE; -PROPOFOL IV EMULSION 10 MG/ML 20 ML VIAL ONE; -ROCURONIUM BROMIDE 10 MG/ML 5ML VIAL IV ONE; -SEVOFLURANE INHAL SOLN 250 ML PEN BTL ONE; -SUCCINYLCHOLINE CHLORIDE 20 MG/ML 10ML VIAL ONE
[2024-08-30 09:51] VITALS: PULSE 80; RESP 18; TEMP 98.9
[2024-08-30 10:53] LABS: CLARITY,URINE CLEAR (CLEAR); COLOR,URINE YELLOW (YELLOW); GLUCOSE, URINE 1+ (NEGATIVE); KETONES,URINE NEGATIVE (NEGATIVE); LEUKOCYTE ESTERASE ,URINE TRACE (NEGATIVE); NITRITE,URINE NEGATIVE (NEGATIVE); PH,URINE 6 (5 - 7); PROTEIN,URINE DIPSTICK NEGATIVE (NEGATIVE)
[2024-08-30 10:54] LABS: BILIRUBIN,URINE NEGATIVE (NEGATIVE); URINE UROBILINOGEN 0.2 mg/dL (0.2 - 1)
[2024-08-30 11:01] LABS: BACTERIA,URINE FEW /HPF; EPITHELIAL CELLS,URINE MANY /LPF; RBC,URINE 0-5 /HPF (0-5)
[2024-08-30] MEDS ORDERED: CEFDINIR300 MG PO (11:45)
[2024-08-30] MEDS ORDERED: FLUCONAZOLE200 MG PO (11:45)
[2024-08-30 12:05] VITALS: BP 146/77; PULSE 74; RESP 18; O2SAT 100
== END 2024-08-30 12:08 | disposition home or self-care (01) ==
LOC: ER 09:47
DX: R30.0 Dysuria (principal); N39.0 Urinary tract infection, site not specified; I10 Essential (primary) hypertension; E11.9 Type 2 diabetes mellitus without complications; I50.9 Heart failure, unspecified; J45.909 Unspecified asthma, uncomplicated
CPT/HCPCS: 81001; 87086; 99282

== ENCOUNTER 2024-11-28 03:09 | Emergency (ER) | payer MEDICARE ==
[~2024-11-28] VITALS: Ht 149.9 cm; Wt 100.7 kg
[~2024-11-28 03:09] MED LIST changes: +FLUCONAZOLE200 MG PO
[2024-11-28 04:05] LABS: BASOPHILS # (AUTO) 0.1 (0.0-0.1); BASOPHILS % 1.3 % (0.0-1.0); EOSINOPHILS # (AUTO) 0.7 (0.0-0.4); EOSINOPHILS % 7.8 % (0.0-6.0); HEMOGLOBIN 9.8 g/dL (12.0-16.0); LYMPHOCYTES # (AUTO) 1.6 (1.0-3.2); LYMPHOCYTES % 19.1 % (18.0-39.1); MEAN CORPUSCULAR HEMOGLOBIN 31.2 pg (28-32); MEAN CORPUSCULAR HGB CONC 31.6 g/dL (31-35); MEAN CORPUSCULAR VOLUME 98.7 fL (81-99); MONOCYTES # (AUTO) 0.6 (0.2-0.8); MONOCYTES % 7.5 % (4.4-11.3); NEUTROPHILS # (AUTO) 5.5 (2.1-6.9); NEUTROPHILS % 63.9 % (38.7-80.0); PLATELET COUNT 120 x10e3/uL (140-360); RED BLOOD COUNT 3.14 x10e6/uL (3.6-5.1); RED CELL DISTRIBUTION WIDTH 13.1 % (11.7-14.4); WHITE BLOOD COUNT 8.54 x10e3/uL (4.8-10.8)
[2024-11-28 04:06] VITALS: PULSE 68; RESP 20; TEMP 98.6
[2024-11-28 04:07] LABS: CORONAVIRUS COVID-19 AG NEGATIVE (NEGATIVE); INFLUENZA A AG POSITIVE (NEGATIVE); INFLUENZA B AG NEGATIVE (NEGATIVE)
[2024-11-28 04:32] LABS: STREPTOCOCCUS GRP A ANTIGEN POSITIVE (NEGATIVE)
[2024-11-28 04:36] LABS: TROPONIN I < 0.001 ng/mL (0-0.300)
[2024-11-28 05:04] LABS: ALANINE AMINOTRANSFERASE 14 IU/L (0-55); ALBUMIN 3.1 g/dL (3.5-5.0); ALBUMIN/GLOBULIN RATIO 0.8 (0.8-2.0); ALKALINE PHOSPHATASE 137 IU/L (40-150); BILIRUBIN,TOTAL 0.2 mg/dL (0.2-1.2); BLOOD UREA NITROGEN 28 mg/dL (7-26); BUN/CREATININE RATIO 23 (6-25); CALCIUM 9.1 mg/dL (8.4-10.2); CARBON DIOXIDE 26 mmol/L (22-29); CHLORIDE 101 mmol/L (98-107); CREATINE KINASE 40 IU/L (29-168); EST GLOMERULAR FILTRATION RATE 48 ML/MIN (>=60); GLUCOSE 357 mg/dL (74-118); SODIUM 135 mmol/L (136-145); TOTAL PROTEIN 6.8 g/dL (6.5-8.1)
[2024-11-28] MEDS ORDERED: TAMIFLU75 MG PO (05:18)
[2024-11-28] MEDS ORDERED: AZITHROMYCIN250 MG PO (05:18)
[2024-11-28 06:03] VITALS: BP 137/63; PULSE 62; RESP 15; TEMP 98.3; O2SAT 100
== END 2024-11-28 06:12 | disposition home or self-care (01) ==
LOC: ER 03:13
DX: R06.02 Shortness of breath (principal); J10.1 Influenza due to other identified influenza virus with other respiratory manifestations; J02.0 Streptococcal pharyngitis; Z11.52 Encounter for screening for COVID-19; R94.31 Abnormal electrocardiogram [ECG] [EKG]
CPT/HCPCS: 36415; 71045; 80053; 82550; 83518; 83690; 83880; 84484; 85025; 93005; 99284

== ENCOUNTER 2024-12-06 18:13 | Emergency (ER) | payer MEDICARE ==
[~2024-12-06] VITALS: Ht 149.9 cm; Wt 100.7 kg
[~2024-12-06 18:13] MED LIST changes: +AZITHROMYCIN250 MG PO; +TAMIFLU75 MG PO
[2024-12-06 19:22] LABS: CLARITY,URINE CLEAR (CLEAR); COLOR,URINE COLORLESS (YELLOW)
[2024-12-06 19:23] LABS: BILIRUBIN,URINE NEGATIVE (NEGATIVE); GLUCOSE, URINE NEGATIVE (NEGATIVE); KETONES,URINE NEGATIVE (NEGATIVE); NITRITE,URINE NEGATIVE (NEGATIVE); PROTEIN,URINE DIPSTICK NEGATIVE (NEGATIVE); URINE UROBILINOGEN 0.2 mg/dL (0.2 - 1)
[2024-12-06 19:24] LABS: LEUKOCYTE ESTERASE ,URINE SMALL (NEGATIVE); PH,URINE 5 (5 - 7)
[2024-12-06 19:39] LABS: BACTERIA,URINE FEW /HPF; EPITHELIAL CELLS,URINE FEW /LPF; RBC,URINE 0-5 /HPF (0-5); YEAST,URINE RARE
[2024-12-06] MEDS ORDERED: CEPHALEXIN500 MG PO (19:44)
[2024-12-06] MEDS ORDERED: DIFLUCAN200 MG PO (19:47)
[2024-12-06 19:57] VITALS: PULSE 63; RESP 16; TEMP 98.1; O2SAT 99
== END 2024-12-06 20:04 | disposition home or self-care (01) ==
LOC: ER 18:25
DX: R30.0 Dysuria (principal); N39.0 Urinary tract infection, site not specified; I10 Essential (primary) hypertension; E11.9 Type 2 diabetes mellitus without complications; I50.9 Heart failure, unspecified; J45.909 Unspecified asthma, uncomplicated; K21.9 Gastro-esophageal reflux disease without esophagitis; Z95.1 Presence of aortocoronary bypass graft
CPT/HCPCS: 81001; 87086; 99283

== ENCOUNTER 2025-01-20 03:54 | Emergency (ER) | payer MEDICARE ==
[~2025-01-20] VITALS: Ht 149.9 cm; Wt 100.7 kg
[~2025-01-20 03:54] MED LIST changes: +CEPHALEXIN500 MG PO; +DIFLUCAN200 MG PO
[2025-01-20] MEDS: ACETAMINOPHEN 325 MG TAB PO ONE (04:29)
[2025-01-20 04:53] LABS: CORONAVIRUS COVID-19 AG POSITIVE (NEGATIVE); INFLUENZA A AG NEGATIVE (NEGATIVE); INFLUENZA B AG NEGATIVE (NEGATIVE); STREPTOCOCCUS GRP A ANTIGEN NEGATIVE (NEGATIVE)
[2025-01-20 05:10] VITALS: PULSE 78; RESP 20; TEMP 99.9; O2SAT 95
== END 2025-01-20 05:25 | disposition home or self-care (01) ==
LOC: ER 04:00
DX: R50.9 Fever, unspecified (principal); U07.1 COVID-19; I10 Essential (primary) hypertension; E11.9 Type 2 diabetes mellitus without complications; I50.9 Heart failure, unspecified; K21.9 Gastro-esophageal reflux disease without esophagitis; J45.909 Unspecified asthma, uncomplicated; Z95.1 Presence of aortocoronary bypass graft
CPT/HCPCS: 71045; 83518; 87070; 99283

== ENCOUNTER 2025-02-12 05:59 | Emergency (ER) | payer MEDICARE ==
[~2025-02-12] VITALS: Ht 149.9 cm; Wt 100.7 kg
[2025-02-12 06:05] VITALS: TEMP 98.8
[2025-02-12] MEDS ORDERED: SODIUM CHLORIDE 0.9% 1000ML 1,000 ML IV SCH (06:15)
[2025-02-12 06:45] LABS: BASOPHILS # (AUTO) 0.1 (0.0-0.1); BASOPHILS % 0.9 % (0.0-1.0); EOSINOPHILS # (AUTO) 0.6 (0.0-0.4); EOSINOPHILS % 7.5 % (0.0-6.0); HEMATOCRIT 33.7 % (34.2-44.1); HEMOGLOBIN 10.9 g/dL (12.0-16.0); LYMPHOCYTES # (AUTO) 1.6 (1.0-3.2); LYMPHOCYTES % 21.8 % (18.0-39.1); MEAN CORPUSCULAR HEMOGLOBIN 30.3 pg (28-32); MEAN CORPUSCULAR HGB CONC 32.3 g/dL (31-35); MEAN CORPUSCULAR VOLUME 93.6 fL (81-99); MONOCYTES # (AUTO) 0.7 (0.2-0.8); NEUTROPHILS # (AUTO) 4.4 (2.1-6.9); NEUTROPHILS % 59.7 % (38.7-80.0); PLATELET COUNT 149 x10e3/uL (140-360); RED CELL DISTRIBUTION WIDTH 13.1 % (11.7-14.4); WHITE BLOOD COUNT 7.42 x10e3/uL (4.8-10.8)
[2025-02-12 07:00] LABS: ALBUMIN 3.2 g/dL (3.5-5.0); ALBUMIN/GLOBULIN RATIO 0.7 (0.8-2.0); ANION GAP 14.9 mmol/L (8-16); BILIRUBIN,TOTAL 0.4 mg/dL (0.2-1.2); CREATININE, SERUM 1.28 mg/dL (0.57-1.11); POTASSIUM 4.9 mmol/L (3.5-5.1); TOTAL PROTEIN 7.5 g/dL (6.5-8.1)
[2025-02-12 07:05] LABS: TROPONIN I 0.009 ng/mL (0-0.300)
[2025-02-12] MEDS: KETOROLAC TROMETHAMINE 30 MG/ML VIAL IV STA (07:13)
[2025-02-12] MEDS: DIPHENHYDRAMINE HCL 25 MG CAP PO ONE (07:14)
[2025-02-12] MEDS: METOCLOPRAMIDE HCL 10 MG/2ML VIAL IV ONE (07:14)
[2025-02-12 08:37] VITALS: PULSE 68; RESP 15
[2025-02-12 08:50] LABS: BILIRUBIN,URINE NEGATIVE (NEGATIVE); CLARITY,URINE CLOUDY (CLEAR); COLOR,URINE YELLOW (YELLOW); GLUCOSE, URINE 1+ (NEGATIVE); KETONES,URINE NEGATIVE (NEGATIVE); LEUKOCYTE ESTERASE ,URINE NEGATIVE (NEGATIVE); NITRITE,URINE NEGATIVE (NEGATIVE); PH,URINE 7 (5 - 7); PROTEIN,URINE DIPSTICK 2+ (NEGATIVE); URINE UROBILINOGEN 0.2 mg/dL (0.2 - 1)
[2025-02-12 08:52] LABS: BACTERIA,URINE FEW /HPF; EPITHELIAL CELLS,URINE MANY /LPF
[2025-02-12 09:33] VITALS: BP 157/63; PULSE 78; RESP 18; O2SAT 100
== END 2025-02-12 09:35 | disposition home or self-care (01) ==
LOC: ER 06:08
DX: R51.9 Headache, unspecified (principal); R07.89 Other chest pain; I10 Essential (primary) hypertension; E11.65 Type 2 diabetes mellitus with hyperglycemia; I50.9 Heart failure, unspecified; J45.909 Unspecified asthma, uncomplicated; K21.9 Gastro-esophageal reflux disease without esophagitis; R94.31 Abnormal electrocardiogram [ECG] [EKG]; Z95.1 Presence of aortocoronary bypass graft
CPT/HCPCS: 36415; 71045; 80053; 81001; 84484; 85025; 93005; 99284

== ENCOUNTER 2025-02-28 21:34 | Inpatient (IN) | payer MEDICARE ==
[~2025-02-28] VITALS: Ht 149.9 cm; Wt 96.6 kg
[2025-02-28 23:20] VITALS: RESP 18; TEMP 98.9
[2025-03-01 00:47] LABS: BASOPHILS # (AUTO) 0.1 (0.0-0.1); BASOPHILS % 0.7 % (0.0-1.0); EOSINOPHILS # (AUTO) 0.4 (0.0-0.4); HEMATOCRIT 35.5 % (34.2-44.1); HEMOGLOBIN 11.4 g/dL (12.0-16.0); LYMPHOCYTES # (AUTO) 1.6 (1.0-3.2); LYMPHOCYTES % 18.2 % (18.0-39.1); MEAN CORPUSCULAR HEMOGLOBIN 30.1 pg (28-32); MEAN CORPUSCULAR HGB CONC 32.1 g/dL (31-35); MEAN CORPUSCULAR VOLUME 93.7 fL (81-99); MONOCYTES # (AUTO) 0.7 (0.2-0.8); MONOCYTES % 8.1 % (4.4-11.3); NEUTROPHILS # (AUTO) 5.9 (2.1-6.9); NEUTROPHILS % 67.9 % (38.7-80.0); PLATELET COUNT 136 x10e3/uL (140-360); RED BLOOD COUNT 3.79 x10e6/uL (3.6-5.1); RED CELL DISTRIBUTION WIDTH 13.7 % (11.7-14.4); WHITE BLOOD COUNT 8.63 x10e3/uL (4.8-10.8)
[2025-03-01 01:10] LABS: ALBUMIN 3.5 g/dL (3.5-5.0); ALBUMIN/GLOBULIN RATIO 0.8 (0.8-2.0); ANION GAP 15.6 mmol/L (8-16); BILIRUBIN,TOTAL 0.4 mg/dL (0.2-1.2); CALCIUM 9.4 mg/dL (8.4-10.2); CREATININE, SERUM 1.19 mg/dL (0.57-1.11); POTASSIUM 4.6 mmol/L (3.5-5.1); TOTAL PROTEIN 7.7 g/dL (6.5-8.1)
[2025-03-01 01:37] LABS: TROPONIN I 0.003 ng/mL (0-0.300)
[2025-03-01] MEDS ORDERED: ONDANSETRON HCL INJ 2MG/ML 2ML 2 MG/ML VIAL IV PRN ×2 (02:15→16:30)
[2025-03-01 02:49] LABS: TROPONIN I 0.004 ng/mL (0-0.300)
[2025-03-01] MEDS: HYDRALAZINE HCL 20 MG/ML VIAL IV STA (04:12)
[2025-03-01 04:25] VITALS: PULSE 72
[2025-03-01 05:00] VITALS: BP 150/76; PULSE 77; RESP 16; TEMP 97.7; O2SAT 99
[2025-03-01 08:59] VITALS: BP 146/71; PULSE 74; RESP 17; TEMP 98; O2SAT 100
[2025-03-01] MEDS: CARVEDILOL 3.125 MG TAB PO SCH (09:43)
[2025-03-01] MEDS: SODIUM CHLORIDE 0.9% 1000ML 1,000 ML IV SCH (10:02)
[2025-03-01 10:53] LABS: FREE THYROXINE INDEX 2.3102 (1.4-3.8); T3 UPTAKE 32.91 % (22.5-37.0); T4 (THYROXINE) 7.02 ug/dL (4.5-10.9); THYROID STIMULATING HORMONE 1.21 uIU/mL (0.350-4.940)
[2025-03-01 11:45] VITALS: BP 144/53; PULSE 74; RESP 16; TEMP 98.3; O2SAT 98
[2025-03-01 16:00] VITALS: BP 137/56; PULSE 70; RESP 16; TEMP 98; O2SAT 100
[2025-03-01] MEDS: INSULIN LISPRO 100 UNIT/1 ML 3ML VIAL SQ SCH (16:30)
[2025-03-01] MEDS ORDERED: HYDROCODONE/APAP 10MG-325MG TAB PO PRN (16:30)
[2025-03-01] MEDS ORDERED: HYDRALAZINE HCL 20 MG/ML VIAL IV PRN (16:30)
[2025-03-01] MEDS ORDERED: DEXTROSE 50% SYRINGE 50 ML IV PRN (16:30)
[2025-03-01] MEDS: POTASSIUM CHLORIDE 20 MEQ TAB CR PO SCH (16:52)
[2025-03-01 17:16] LABS: TROPONIN I 0.011 ng/mL (0-0.300)
[2025-03-01 20:00] VITALS: BP 161/63; PULSE 70; RESP 17; TEMP 98.8; O2SAT 97
[2025-03-01] MEDS: ATORVASTATIN 40 MG TAB PO SCH (20:27)
[2025-03-01] MEDS: INSULIN GLARGINE 100 UNITS/ML VIAL SQ SCH (21:53)
[2025-03-02] VITALS (7 sets, daily range): BP systolic 152–175; BP diastolic 59–76; PULSE 66–76; RESP 17–20; TEMP 98–98.8; O2SAT 97–100
[2025-03-02] MEDS ORDERED: IOPAMIDOL 370 MG/ML 100 ML INFUS..BTL INJ ONE (00:56)
[2025-03-02] MEDS: SODIUM CHLORIDE 0.9% 1000ML 1,000 ML IV SCH (05:35)
[2025-03-02 05:45] LABS: BASOPHILS # (AUTO) 0.1 (0.0-0.1); BASOPHILS % 1.2 % (0.0-1.0); EOSINOPHILS # (AUTO) 0.4 (0.0-0.4); HEMATOCRIT 34.6 % (34.2-44.1); LYMPHOCYTES # (AUTO) 1.6 (1.0-3.2); LYMPHOCYTES % 26.5 % (18.0-39.1); MEAN CORPUSCULAR HEMOGLOBIN 29.9 pg (28-32); MEAN CORPUSCULAR HGB CONC 31.8 g/dL (31-35); MONOCYTES # (AUTO) 0.7 (0.2-0.8); MONOCYTES % 11.1 % (4.4-11.3); NEUTROPHILS # (AUTO) 3.3 (2.1-6.9); NEUTROPHILS % 54.2 % (38.7-80.0); PLATELET COUNT 135 x10e3/uL (140-360); RED BLOOD COUNT 3.68 x10e6/uL (3.6-5.1); RED CELL DISTRIBUTION WIDTH 13.6 % (11.7-14.4); WHITE BLOOD COUNT 6.04 x10e3/uL (4.8-10.8)
[2025-03-02 05:59] LABS: PROTHROMBIN TIME 13.8 seconds (11.9-14.5)
[2025-03-02 06:00] LABS: PARTIAL THROMBOPLASTIN TIME 33.1 seconds (23.8-35.5)
[2025-03-02 06:14] LABS: ALBUMIN 3.2 g/dL (3.5-5.0); ALBUMIN/GLOBULIN RATIO 0.8 (0.8-2.0); ANION GAP 13.4 mmol/L (8-16); BILIRUBIN,TOTAL 0.4 mg/dL (0.2-1.2); POTASSIUM 4.4 mmol/L (3.5-5.1); TOTAL PROTEIN 7.2 g/dL (6.5-8.1)
[2025-03-02 06:17] LABS: CHOL/HDL RATIO 2.6 (3.0-3.6)
[2025-03-02 06:31] LABS: TROPONIN I 0.019 ng/mL (0-0.300)
[2025-03-02] MEDS: ACETAMINOPHEN 325 MG TAB PO PRN (09:27)
[2025-03-02] MEDS: CARVEDILOL 12.5 MG TAB PO SCH (09:27)
[2025-03-02] MEDS: LOSARTAN POTASSIUM 100 MG TAB PO SCH (09:28)
[2025-03-02] MEDS: DIPHENHYDRAMINE HCL INJ 50 MG/ML VIAL ONE (15:28)
[2025-03-02] MEDS: FAMOTIDINE 20 MG/2 ML VIAL IV ONE (15:28)
[2025-03-02] MEDS: METHYLPREDNISOLONE SOD SUCC 125 MG/2ML VIAL ONE (15:28)
[2025-03-02] MEDS ORDERED: DIPHENHYDRAMINE HCL INJ 50 MG/ML VIAL IV PRN (16:30)
[2025-03-02] MEDS: HEPARIN SOD (PORCINE) 1000 UNIT/ML 30ML ONE (18:50)
[2025-03-02] MEDS: VERAPAMIL HCL 2.5 MG/ML 2 ML VIAL ONE (18:50)
[2025-03-02] MEDS: LIDOCAINE HCL 2% LOCAL 20 ML VIAL ONE (18:51)
[2025-03-02] MEDS: SODIUM CHLORIDE 0.9% 1000ML 0 ML ONE (18:51)
[2025-03-02] MEDS: NITROGLYCERIN/D5W 200 MCG/ML 250 ML ONE (18:51)
[2025-03-02] MEDS: HEPARIN SOD/SOD CHLORIDE 2,000 ML ONE (18:51)
[2025-03-02] MEDS: FENTANYL CITRATE/PF 100MCG/2 ML INJ ONE (18:52)
[2025-03-02] MEDS: MIDAZOLAM HCL 2 MG/2 ML VIAL ONE ×2 (18:52→19:54)
[2025-03-02] MEDS: IOPAMIDOL 370 MG/ML 100 ML INFUS..BTL INJ ONE ×2 (18:52)
[2025-03-02] MEDS: ASPIRIN 325 MG TAB ONE (18:53)
[2025-03-02] MEDS: CLOPIDOGREL BISULFATE 75 MG TAB ONE (19:54)
[2025-03-02] MEDS: ONDANSETRON HCL INJ 2MG/ML 2ML 2 MG/ML VIAL ONE (19:55)
[2025-03-03] VITALS (8 sets, daily range): BP systolic 143–158; BP diastolic 54–68; PULSE 68–72; RESP 18–20; TEMP 97.8–98.3; O2SAT 96–100
[2025-03-03] MEDS: ACETAMINOPHEN 325 MG TAB PO PRN (08:21)
[2025-03-04] VITALS (8 sets, daily range): BP systolic 113–150; BP diastolic 49–69; PULSE 64–71; RESP 16–18; TEMP 97.8–98.9; O2SAT 95–100
[2025-03-05] VITALS: BP 129/52; PULSE 66; RESP 18; TEMP 97.8; O2SAT 100
[2025-03-05 04:00] VITALS: BP 141/62; PULSE 71; RESP 18; TEMP 98.6; O2SAT 97
[2025-03-05 06:23] LABS: BASOPHILS # (AUTO) 0.1 (0.0-0.1); BASOPHILS % 0.6 % (0.0-1.0); EOSINOPHILS # (AUTO) 0.6 (0.0-0.4); EOSINOPHILS % 7.7 % (0.0-6.0); HEMATOCRIT 31.3 % (34.2-44.1); LYMPHOCYTES # (AUTO) 1.8 (1.0-3.2); LYMPHOCYTES % 22.8 % (18.0-39.1); MEAN CORPUSCULAR HGB CONC 31.3 g/dL (31-35); MEAN CORPUSCULAR VOLUME 95.7 fL (81-99); MONOCYTES # (AUTO) 0.7 (0.2-0.8); MONOCYTES % 9.2 % (4.4-11.3); NEUTROPHILS # (AUTO) 4.8 (2.1-6.9); NEUTROPHILS % 59.5 % (38.7-80.0); PLATELET COUNT 118 x10e3/uL (140-360); RED BLOOD COUNT 3.27 x10e6/uL (3.6-5.1); RED CELL DISTRIBUTION WIDTH 13.8 % (11.7-14.4); WHITE BLOOD COUNT 8.08 x10e3/uL (4.8-10.8)
[2025-03-05 06:33] LABS: HEMOGLOBIN 9.8 g/dL (12.0-16.0)
[2025-03-05 06:51] LABS: CALCIUM 8.8 mg/dL (8.4-10.2); CREATININE, SERUM 0.91 mg/dL (0.57-1.11)
[2025-03-05 08:00] VITALS: BP 145/54; PULSE 75; RESP 18; TEMP 98.2; O2SAT 99
[2025-03-05 12:00] VITALS: BP 155/58; PULSE 73; RESP 19; TEMP 98.2; O2SAT 100
[2025-03-05] MEDS: CLOPIDOGREL BISULFATE 75 MG TAB PO ONE (14:28)
[2025-03-05] MEDS: ASPIRIN 81 MG CHEW TAB PO SCH (14:28)
[2025-03-05] MEDS ORDERED: APIXABAN 2.5 MG TABLET PO SCH (17:00)
[2025-03-06] MEDS ORDERED: CLOPIDOGREL BISULFATE 75 MG TAB PO SCH (09:00)
== END 2025-03-05 14:50 | disposition home or self-care (01) | DRG 322 ==
LOC: ER 21:41 → ERHOLD 03-01 02:07 → MED/SURG3 03-01 04:45 → OBSVTOIN 03-01 16:35
PROVIDERS: ADMIT Internal Medicine; ATTEND Internal Medicine
PROC: 027035Z Dilation of Coronary Artery, One Artery with Two Drug-eluting Intraluminal Devices, Percutaneous Approach (ICD-10-PCS; principal; 2025-03-02)
PROC: 4A023N7 Measurement of Cardiac Sampling and Pressure, Left Heart, Percutaneous Approach (ICD-10-PCS; 2025-03-02)
PROC: B2111ZZ Fluoroscopy of Multiple Coronary Arteries using Low Osmolar Contrast (ICD-10-PCS; 2025-03-02)
DX: I25.110 Atherosclerotic heart disease of native coronary artery with unstable angina pectoris (principal); I11.0 Hypertensive heart disease with heart failure; I50.22 Chronic systolic (congestive) heart failure; E66.01 Morbid (severe) obesity due to excess calories; Z68.41 Body mass index [BMI] 40.0-44.9, adult; I16.0 Hypertensive urgency; N93.9 Abnormal uterine and vaginal bleeding, unspecified; E11.9 Type 2 diabetes mellitus without complications; I48.0 Paroxysmal atrial fibrillation; K21.9 Gastro-esophageal reflux disease without esophagitis; J45.909 Unspecified asthma, uncomplicated; F41.9 Anxiety disorder, unspecified; F32.A Depression, unspecified; Z79.01 Long term (current) use of anticoagulants; Z79.02 Long term (current) use of antithrombotics/antiplatelets; Z79.4 Long term (current) use of insulin; Z79.85 Long-term (current) use of injectable non-insulin antidiabetic drugs; Z95.1 Presence of aortocoronary bypass graft; Z98.61 Coronary angioplasty status; Z87.440 Personal history of urinary (tract) infections; Z88.5 Allergy status to narcotic agent; Z88.1 Allergy status to other antibiotic agents; Z88.2 Allergy status to sulfonamides
CPT/HCPCS: 36415; 71045; 74177; 75625; 75716; 76937; 80048; 80053; 80061; 82550; 82948; 83036; 83690; 83880; 84436; 84443; 84479; 84484; 85025; 85610; 85730; 92928; 93005; 93306; 93459; 96361; 99152; 99153; 99284; C1725; C1760; C1769; C1874; C1887; C1894; J0360; J1200; J1308; J1644; J2003; J2250; J2405; J2919; J7030; Q9967

== ENCOUNTER → 2025-08-03 | Outpatient (REF) | payer MEDICARE | LOC: US 11:54 | PROVIDERS: ATTEND Urology | DX: N39.0 Urinary tract infection, site not specified (principal) | CPT/HCPCS: 76770; 76857 ==